=== PATIENT | male | born 1975 | race Caucasian/White ===

== ENCOUNTER 2024-05-08 10:16 | Day surgery (SDC) | payer BC ==
[2024-05-08] VITALS (12 sets, daily range): BP systolic 130–149; BP diastolic 71–93; PULSE 58–75; RESP 11–18; TEMP 98.4; O2SAT 93–98
[~2024-05-08] VITALS: Ht 185.4 cm; Wt 112.8 kg
[2024-05-08] MEDS ORDERED: nitroGLYCERIN 0.4mg SUBLingual tab SL PRN ×2 (10:35→13:05)
[2024-05-08] MEDS ORDERED: iohexol 350MG/ML 100ml bottle IV ONE (11:01)
[2024-05-08] MEDS ORDERED: iohexol 350 MG/ML 50ML vial IV ONE ×2 (11:01→12:12)
[2024-05-08] MEDS ORDERED: midazolam 1 mg/ML 2ml injection ONE ×3 (11:02→12:22)
[2024-05-08] MEDS ORDERED: LIDOcaine 1% 30ml preserv. free vial ONE (11:02)
[2024-05-08] MEDS ORDERED: fentaNYL/PF 50MCG/1 ML 2ML syringe ONE ×3 (11:02→12:22)
[2024-05-08] MEDS ORDERED: OMEP40CA21 PO (11:09)
[2024-05-08] MEDS ORDERED: PRAS25CA PO (11:09)
[2024-05-08] MEDS ORDERED: ASPI81TA52 PO (11:09)
[2024-05-08] MEDS ORDERED: LOSA50TA64 PO (11:09)
[2024-05-08] MEDS ORDERED: ROSU10TA28 PO (11:09)
[2024-05-08] MEDS ORDERED: ANAS1TAB10 PO (11:09)
[2024-05-08] MEDS ORDERED: SENN-263 PO (11:09)
[2024-05-08] MEDS ORDERED: MULT-1085 PO (11:09)
[2024-05-08] MEDS ORDERED: ALEN70TA80 PO (11:09)
[2024-05-08] MEDS ORDERED: CALC-234 (11:09)
[2024-05-08] MEDS ORDERED: CHOL20004 PO (11:09)
[2024-05-08] MEDS ORDERED: CA C1TAB95 (11:09)
[2024-05-08] MEDS ORDERED: TEST200V33 IM (11:09)
[2024-05-08] MEDS ORDERED: TADA10TA PO (11:09)
[2024-05-08 11:15] LABS: BASOPHILS % (AUTO) 0.2 % (0-1); EOSINOPHILS # (AUTO) 0.1 X10'3 (0-0.9); EOSINOPHILS % (AUTO) 1.3 % (0-6); HEMATOCRIT 54.1 % (42.0-52.0); LYMPHOCYTES % (AUTO) 20.4 % (21-51); MEAN CORPUSCULAR HEMOGLOBIN 30.4 PG (27.0-31.0); MEAN CORPUSCULAR HGB CONC 33.7 g/dL (33.0-36.5); MEAN CORPUSCULAR VOLUME 90.3 FL (78-98); MEAN PLATELET VOLUME 6.2 FL (7.4-10.4); MONOCYTES # (AUTO) 0.4 X10'3 (0-0.9); MONOCYTES % (AUTO) 7.7 % (2-12); NEUTROPHILS # (AUTO) 3.6 X10'3 (1.8-7.7); NEUTROPHILS % (AUTO) 70.4 % (42-75); PLATELET COUNT 188 X10'3 (140-440); RED BLOOD COUNT 5.99 X10'6 (4.70-6.10); RED CELL DISTRIBUTION WIDTH 14.6 % (11.5-14.5); WHITE BLOOD COUNT 5.1 X10'3 (4.5-11.0)
[2024-05-08 11:16] LABS: HEMOGLOBIN 18.2 g/dl (14.0-17.9)
[2024-05-08 11:23] LABS: APTT 25 SECONDS (22-32); INR 1.2 INR
[2024-05-08] MEDS: LORazepam 0.5 MG tablet PO PRN (11:28)
[2024-05-08] MEDS: normal saline 1,000 ML IV SCH (11:28)
[2024-05-08] MEDS: diphenhydrAMINE 25mg capsule PO PRN (11:28)
[2024-05-08 11:57] LABS: ANION GAP 8 (8-16); BLOOD UREA NITROGEN 17 MG/DL (7-18); BUN/CREATININE RATIO 13.2 (10.0-20.0); CALCIUM 8.6 MG/DL (8.5-10.1); CHLORIDE 106 MMOL/L (99-107); CREATININE 1.29 MG/DL (0.60-1.10); GLUCOSE 111 MG/DL (70-104); POTASSIUM 4.1 MMOL/L (3.5-5.1); SODIUM 140 MMOL/L (135-145); TOTAL CARBON DIOXIDE 25.8 MMOL/L (24-32); eCRCL 78 ML/MIN; eGFR 59 ML/MIN
[2024-05-08] MEDS ORDERED: heparin 1,000 UNITS/NS 500ml 500 ML ONE (11:59)
[2024-05-08] MEDS ORDERED: normal saline 1,000 ML IV ONE (13:02)
[2024-05-08] MEDS ORDERED: HYDROcodone/acetaminophen 10/325mg tab PO PRN (13:05)
[2024-05-08] MEDS ORDERED: OXAZEpam 15mg capsule PO PRN (13:05)
[2024-05-08] MEDS ORDERED: HYDROcodone/acetaminophen 5mg/325mg tablet PO PRN (13:05)
[2024-05-08] MEDS: ibuprofen tablet 400 MG TABLET PO ONE (17:11)
== END 2024-05-08 18:25 | disposition home or self-care (01) ==
LOC: SSTAY O 10:16
PROVIDERS: ATTEND Internal Medicine Cardiovascular Disease
DX: R94.39 Abnormal result of other cardiovascular function study (principal); I25.119 Atherosclerotic heart disease of native coronary artery with unspecified angina pectoris; I42.9 Cardiomyopathy, unspecified; I10 Essential (primary) hypertension; Z79.82 Long term (current) use of aspirin; Z79.899 Other long term (current) drug therapy
CPT/HCPCS: 36415; 71046; 80048; 85025; 85610; 85730; 93005; 93458; 93567; 99152; 99153; J1644; J2250; J3010; J3490; J7030; Q0163; Q9967; A6258; C1760